=== PATIENT | male | born 1960 | race Caucasian/White ===

== ENCOUNTER → 2019-01-02 10:07 | Outpatient (CLI) | payer MEDICAID, SELFPAY ==
--- NOTE | 2019-01-02 10:52 | MRI_ITS ---
STUDY: MRI RIGHT SHOULDER ARTHROGRAM REASON FOR EXAM: Male, 58 years old. Shoulder pain. Throbbing. TECHNIQUE: Standardized arthrographic pulse sequences were obtained in all 3 orthogonal planes. Intra-articular gadolinium administration with dilute 12 mL gadolinium injection. Please see dedicated arthrogram technique. Additional ABER view obtained. COMPARISON: December 25, 2018 x-rays from the same day. FINDINGS: Suboptimal positioning. Diffuse labral degeneration and tearing (axial images 11 through 17 series 3). Rupture of the biceps labral anchor. Ruptured intracapsular long biceps tendon with retraction. Capsular ligaments intact. Full-thickness retracted supraspinatus tendon tear measuring 3.1 cm (coronal image 12 series 5) by 2.2 cm (axial image 5 series 3). Partial involvement of the infraspinatus tendon. Intact subscapularis tendon. Intact teres minor tendon. No significant muscle atrophy. Moderate glenohumeral joint arthrosis. Superior migration of the humeral head. Mild acromioclavicular joint arthrosis. No acute fracture line. No acute dislocation. No acute bone destruction. Intact coracohumeral and coracoacromial ligaments. Normal quadrilateral space. Normal axillary space. Normal deltoid muscle. Normal trapezius muscle. MRI/Upper Ext Jt Only W/Contrast IMPRESSION: Extensive labral degeneration and tearing Full-thickness supraspinatus tendon retracted tear with partial infraspinatus tendon involvement Intracapsular long biceps tendon rupture Electronically Signed: Prem Duval DO at 13:04 EDT Tel , Service support ,
--- NOTE | 2019-01-02 11:00 | RAD_ITS ---
CLINICAL HISTORY: Male, 58 years old. Chronic right shoulder pain. PROCEDURE: ARTHROGRAM - RIGHT SHOULDER CONSENT: The procedure as well as the benefits and possible complications including infection and bleeding were explained to the patient. Informed consent was obtained. FLUOROSCOPY TIME (if supplied): (0:46) minutes/seconds Injection Information: 12 cc of dilute gadolinium. Number of images obtained: 4 TECHNIQUE: (All elements of maximal sterile barrier technique followed, including US elements as applicable) The patient was in the supine position. The overlying skin was prepped and draped in the usual sterile fashion. Following local anesthetic application and under direct fluoroscopic guidance, a 22-gauge spinal needle was placed into the shoulder joint. 2 cc of Isovue 300 was injected for confirmation. Following this, 12 cc of dilute gadolinium was injected. The patient tolerated the procedure well. RAD/Arthrogram Shoulder w/ MRI IMPRESSION: Right shoulder arthrogram with injection of 12 cc of dilute gadolinium for MRI imaging. Electronically Signed: Eric Burris, at 13:43 EDT , Service support ,
== END ==
PROVIDERS: Family Provider Physician Assistant Medical; PCP Physician Assistant Medical; Referring Provider Physician Assistant Medical; Visit Provider Physician Assistant Medical
DX: M75.121 Complete rotator cuff tear or rupture of right shoulder, not specified as traumatic (principal)
CPT/HCPCS: 23350; 73222; 77002; A9575; Q9967